=== PATIENT | female | born 1940 | race Caucasian/White ===

== ENCOUNTER 2018-02-03 13:56 | Emergency (ER) | payer MEDICARE, OTHER ==
[~2018-02-03] VITALS: Ht 167.6 cm; Wt 48.1 kg
[~2018-02-03 13:56] MED LIST: ACETAMINOPHEN325 M1 PO; ACETAMINOPHEN650 MG PO; ALLOPURINOL100 MG PO; BLOOD PRESSURE MEDS; BOOST PLUS237 ML PO; CATAPRES0.2 MG PO; CILOSTAZOL100 MG PO; COZAAR25 MG PO; DOCUSATE SODIU100 MG PO; ESIDRIX25 MG PO; FUROSEMIDE40 MG/4 ML IVP; GABAPENTIN100 MG PO; HYDROMORPHO1 MG/1 ML IVP; LACTULOSE20 GM/30 M PO; LEVOTHYROXINE200 MCG PO; LISINOPRIL10 MG PO; LOPRESSOR25 MG PO; LOSARTAN POTASS50 MG PO; MEGESTROL400 MG/10 PO; MELOXICAM7.5 MG PO; MUPIROCIN22 GM TOP; MYRBETRIQ25 MG PO; NORCO 10-325 T1 EACH PO; NORCO 5-325 TA1 EACH PO; NORVASC5 MG PO; ONDANSETRON2 MG/1 ML IV; PANTOPRAZOLE SO40 MG PO; PLAVIX75 MG PO; SEROQUEL25 MG PO; SODIUM BICARBON IV; TRAZODONE HCL100 MG PO; ULTRAM50 MG PO; VITAMIN D1000 UNIT PO; WAL-DRYL25 MG PO; WELLBUTRIN SR150 MG PO; ZOLOFT50 MG PO; [UNRECOGNIZED DRUG - REMARK]; [UNRECOGNIZED DRUG - REMARK]
[2018-02-03] MEDS ORDERED: SODIUM CHLORIDE 0.9% 500ML 500 ML IV STA (14:31)
[2018-02-03 14:43] LABS: BASOPHILS # (AUTO) 0.1 (0.0-0.1); BASOPHILS % 0.6 % (0.0-1.0); EOSINOPHILS # (AUTO) 0.1 (0.0-0.4); EOSINOPHILS % 0.9 % (0.0-6.0); HEMATOCRIT 36.5 % (34.2-44.1); HEMOGLOBIN 12.2 g/dL (12.0-16.0); LYMPHOCYTES % 7.4 % (18.0-39.1); MEAN CORPUSCULAR HEMOGLOBIN 30.7 pg (28-32); MEAN CORPUSCULAR HGB CONC 33.4 g/dL (31-35); MEAN CORPUSCULAR VOLUME 91.7 fL (81-99); MONOCYTES # (AUTO) 0.8 (0.2-0.8); MONOCYTES % 6.3 % (4.4-11.3); NEUTROPHILS # (AUTO) 10.9 (2.1-6.9); NEUTROPHILS % 84.2 % (38.7-80.0); PLATELET COUNT 529 x10e3/uL (140-360); RED BLOOD COUNT 3.98 x10e6/uL (3.6-5.1); RED CELL DISTRIBUTION WIDTH 14.4 % (11.7-14.4)
[2018-02-03] MEDS ORDERED: ASPIRIN 81 MG CHEW TAB PO ONE (14:45)
[2018-02-03 14:54] LABS: ALBUMIN/GLOBULIN RATIO 0.7 (0.8-2.0); CALCIUM 9.5 mg/dL (8.4-10.2); MAGNESIUM 1.7 MG/DL (1.3-2.1)
[2018-02-03 15:00] LABS: CREATINE KINASE MB 0.7 ng/mL (0-5.0)
--- NOTE | 2018-02-03 15:21 | Diagnostic Imaging Report ---
EXAMINATION: ABDOMEN ACUTE SERIES W/PA CXR INDICATION: \S\epigastric chest pain, constipation \[id number] \S\1500 COMPARISON: Chest radiograph 07/19/2015 FINDINGS: AP view TUBES and LINES: None. LUNGS: Lungs are well inflated. Left basilar opacity. Perihilar interstitial markings and vascular congestion. PLEURA: Left pleural effusion. No pneumothorax. HEART AND MEDIASTINUM: Mild enlargement of the cardiac silhouette. Aortic arch calcifications. BONES AND SOFT TISSUES: Rectangular shaped structure overlying the right femoral neck. Right rotator cuff repair anchors. Surgical clips overlie the left hip. Degenerative changes of the lumbosacral spine. ABDOMEN: No free air under the diaphragm. Cholecystectomy clips. No abnormally distended air filled loops of large or small bowel. Normal amount of stool in the colon. IMPRESSION: Interstitial edema with left pleural effusion and adjacent atelectasis. Underlying pneumonia cannot be excluded. Rectangular radiopaque density overlying the right femoral neck may be within the bone or represent a soft tissue calcification. Consider further evaluation with a nonemergent right hip radiograph. Signed by: DR. Taurus García MD on 02/03/2018 3:17 PM
[2018-02-03] MEDS ORDERED: LEVOFLOXACIN 500MG/D5W 100ML 100 ML IV STA (16:12)
[2018-02-03] MEDS ORDERED: DONNATAL/LIDOCAINE/MAALOX 30 ML SUSP PO ONE (17:00)
== END 2018-02-03 18:45 | disposition home or self-care (01) ==
LOC: ER 13:56
DX: R07.89 Other chest pain (principal); J18.9 Pneumonia, unspecified organism; K59.00 Constipation, unspecified; I10 Essential (primary) hypertension; I50.9 Heart failure, unspecified; F32.9 Major depressive disorder, single episode, unspecified; Z89.612 Acquired absence of left leg above knee; Z89.611 Acquired absence of right leg above knee
CPT/HCPCS: 99285; J1956; J7040